=== PATIENT | female | born 1935 | race African-American/Black ===

== ENCOUNTER → 2017-12-07 | Day surgery (SDC) | payer MEDICARE ==
[~2017-12-07] MED LIST: AMLO10 PO; ASPI81 PO; ATEN1TAB73 PO; ATOR10 PO; BUPIVACAINE/EPINEPHRINE 0.5% PF 30 ML VIAL ONE; DIAZ5 PO; DIOV80TA4 PO; FERR324T4 PO; FURO10S PO; GLYB1TAB51 PO; HUMILIN SQ; HUMULIN SC; LACTATED RINGER'S 1000 ML INJ 1,000 ML ONE; LIDOCAINE 1%/EPINEPHrine 1:100,000 SOLN 30 ML VIAL ONE; MIDAZOLAM HCL 2 MG/2 ML VIAL ONE; ONDANSETRON HCL 4 MG/2 ML VIAL IV PUSH ONE; PROPOFOL 200 MG/20 ML AMP IV ONE; SODIUM CHLORIDE 0.9% INJ 10 ML ONE; [UNRECOGNIZED DRUG - OTHER] PO; ceFAZolin INJ 1,000 MG VIAL ONE
--- NOTE | 2017-12-07 08:58 | TN ---
cc: Mac Salmon MD, Roxy MD DATE OF SURGERY: 12/07/2017 PREOPERATIVE DIAGNOSIS: Mass in the mid-chest wall between the breasts, on the sternum, 5 cm. POSTOPERATIVE DIAGNOSIS: Mass in the mid-chest wall between the breasts, on the sternum, 5 cm. Probable sebaceous cyst. PROCEDURE PERFORMED: Wide excision of chest wall mass measuring 9 cm x 5.5 cm, elliptical incision, double layer closure. ANESTHESIA: LMA. SURGEON: Dr. Salmon. INDICATIONS FOR PROCEDURE: This is a pleasant 82-year-old gentle lady who has a chest wall mass that is located right in the mid-sternum area between the breasts. It is inflamed. It had gotten bigger and was tender. It has gone down somewhat. On initial evaluation it was 6 cm, now is about 5. Plans were made for wide excision. PROCEDURE: The patient is taken to the operating room, placed in supine position. After anesthesia, she is prepped and draped with Betadine. She was given preoperative antibiotics. Timeout is done. We then make an elliptical incision measuring 9 x 6 cm in a vertical fashion to completely excise the lesion, we went down just above the sternum as well about 2 cm deep to remove the entirety of the mass with clear margins. We then mobilize tissue on both sides with the electrocautery device. We did raffaele the specimen with a stitch at the 12 o'clock position for pathologic orientation. We then close the deep layer with the interrupted 3-0 Vicryl suture and the skin is reapproximated with an interrupted 3-0 nylon suture. Sterile bandage applied. The patient tolerated the procedure well, had no immediate postop complications. Mac Salmon MD JDB/LEATHA , 08:38 AM , 08:57 AM
== END | disposition home or self-care (01) ==
LOC: ESDC 06:19
PROVIDERS: ATTEND Surgery
DX: L72.0 Epidermal cyst (principal); E11.9 Type 2 diabetes mellitus without complications; Z79.84 Long term (current) use of oral hypoglycemic drugs; Z79.899 Other long term (current) drug therapy
CPT/HCPCS: 00400; 11406; 12034; 82948; 88304; J0690; J2250; J2405; J3010; J7120; 88305